=== PATIENT | male | born 1940 | race Caucasian/White ===

== ENCOUNTER 2022-12-25 20:50 | Emergency (ER) | payer MEDICARE, BC ==
[2022-12-25] MEDS ORDERED: Acetaminophen 500 MG TAB ONE (21:51)
== END 2022-12-25 23:51 | disposition home or self-care (01) ==
LOC: CSHERS 20:50
DX: M20.012 Mallet finger of left finger(s) (principal); S40.022A Contusion of left upper arm, initial encounter; S20.212A Contusion of left front wall of thorax, initial encounter; I10 Essential (primary) hypertension; E11.9 Type 2 diabetes mellitus without complications; W18.30XA Fall on same level, unspecified, initial encounter; Z79.82 Long term (current) use of aspirin; Z79.899 Other long term (current) drug therapy